=== PATIENT | female | born 1950 | race Caucasian/White ===

== ENCOUNTER 2016-04-18 18:44 | Inpatient (IN) | payer MEDICARE ==
[~2016-04-18] VITALS: Ht 165.1 cm; Wt 113.4 kg
[2016-04-18] MEDS ORDERED: ASPI-1035 PO (18:53)
[2016-04-18] MEDS ORDERED: SODIUM CHLORIDE 0.9% 1,000 ML IV ONE (19:53)
[2016-04-18] MEDS ORDERED: ONDANSETRON HCL 4MG/2ML VIAL IV ONE (20:00)
[2016-04-18] MEDS ORDERED: MECLIZINE 25MG TABLET PO ONE (20:00)
[2016-04-18 20:10] LABS: BASOPHILS % 1.1 % (0.0-2.0); DIFFERENTIAL COMMENT 0; EOSINOPHILS % 0.7 % (0.0-5.0); HEMATOCRIT. 38.4 % (36.0-48.0); HEMOGLOBIN. 12.8 g/dL (12.0-16.0); LYMPHOCYTES % 17.7 % (20.0-50.0); MEAN CORPUSCULAR HEMOGLOBIN 28.6 pg (28.0-32.0); MEAN CORPUSCULAR HGB CONC 33.4 g/dL (31.0-37.0); MEAN CORPUSCULAR VOLUME 85.6 fL (81.0-99.0); MEAN PLATELET VOLUME 9.9 fl (7.4-10.4); MONOCYTES % 6.4 % (2.0-8.0); NEUTROPHILS % 74.1 % (40.0-76.0); PLATELET 625 x1000/uL (130-400); RED BLOOD CELL COUNT 4.49 mill/uL (4.2-5.4); RED CELL DISTRIBUTION WIDTH 14.7 % (11.6-14.6); WHITE BLOOD COUNT 6.6 x1000/uL (4.5-11.0)
[2016-04-18 20:28] LABS: ALANINE AMINOTRANSFERASE 26 IU/L (13-61); ALBUMIN 3.6 g/dL (3.4-5.0); ANION GAP 14; CALCIUM 8.7 mg/dL (8.5-10.1); CARBON DIOXIDE 25 mEq/L (21-32); CHLORIDE 104 mEq/L (98-107); INDEX HEMOLYSI 1 (1-3); INDEX ICTERIC 1 (1-4); INDEX LIPEMIC 1 (1-3); TROPONIN I < 0.02 ng/mL (0.00-0.04); UREA NITROGEN BLOOD 14 mg/dL (7-21); eGFR > 60 mL/min (>60)
[2016-04-18] MEDS ORDERED: POTASSIUM CHLORIDE 20MEQ TABLET SR PO NR (20:30)
[2016-04-18] MEDS ORDERED: ZOLPIDEM TARTRATE 5MG TABLET PO PRN (21:00)
[2016-04-18] MEDS ORDERED: ASPIRIN 325MG TABLET PO ONE (22:15)
[2016-04-18] MEDS ORDERED: ONDANSETRON HCL 4MG/2ML VIAL IV PRN (23:45)
[2016-04-18] MEDS ORDERED: IPRATROPIUM/ALBUTEROL 0.5-3(2.5)MG/3ML NEB INH PRN (23:45)
[2016-04-18] MEDS ORDERED: CLONIDINE 0.1MG TABLET PO PRN (23:45)
[2016-04-19] VITALS (7 sets, daily range): BP systolic 98–108; BP diastolic 66–85
[2016-04-19] MEDS ORDERED: OMEP20TA80 PO (05:30)
[2016-04-19] MEDS ORDERED: DEXTROSE 50% WATER 50ML SYRINGE IV PRN (05:30)
[2016-04-19] MEDS ORDERED: HYDR12.54 PO (05:30)
[2016-04-19] MEDS: OMEPRAZOLE 20MG CAPSULE EXTENDED RELEASE PO SCH (06:29)
[2016-04-19] MEDS: BLOOD SUGAR DIAGNOSTIC STRIP TEST SCH ×4 (06:32→20:37)
[2016-04-19] MEDS: INSULIN LISPRO 100 UNITS/ML SUBCUT SCH ×4 (06:33→20:37)
[2016-04-19 08:39] LABS: *AMPHETAMINES SCREEN URINE NEGATIVE (NEGATIVE); *BARBITURATES SCREEN URINE NEGATIVE (NEGATIVE); *BENZODIAZEPINES SCREEN URINE NEGATIVE (NEGATIVE); *COCAINE SCREEN URINE NEGATIVE (NEGATIVE); CANNABINOID URINE SCREEN NEGATIVE (NEGATIVE); ECSTASY MDMA SCREEN URINE NEGATIVE (NEGATIVE); METHADONE URINE SCREEN NEGATIVE (NEGATIVE); OPIATES URINE SCREEN NEGATIVE (NEGATIVE); PHENCYCLIDINE URINE SCREEN NEGATIVE (NEGATIVE)
[2016-04-19] MEDS ORDERED: ENOXAPARIN 30MG/0.3ML SYR SUBCUT SCH (09:00)
[2016-04-19 09:38] LABS: BASOPHILS % 0.5 % (0.0-2.0); DIFFERENTIAL COMMENT 0; EOSINOPHILS % 1.8 % (0.0-5.0); HEMATOCRIT. 38.7 % (36.0-48.0); HEMOGLOBIN. 12.8 g/dL (12.0-16.0); LYMPHOCYTES % 29.8 % (20.0-50.0); MEAN CORPUSCULAR HEMOGLOBIN 28.5 pg (28.0-32.0); MEAN CORPUSCULAR HGB CONC 33.1 g/dL (31.0-37.0); MEAN CORPUSCULAR VOLUME 86.2 fL (81.0-99.0); MEAN PLATELET VOLUME 10.6 fl (7.4-10.4); MONOCYTES % 5.6 % (2.0-8.0); NEUTROPHILS % 62.3 % (40.0-76.0); PLATELET 601 x1000/uL (130-400); RED BLOOD CELL COUNT 4.49 mill/uL (4.2-5.4); RED CELL DISTRIBUTION WIDTH 14.7 % (11.6-14.6); WHITE BLOOD COUNT 5.6 x1000/uL (4.5-11.0)
[2016-04-19 10:21] LABS: ANION GAP 11; CALCIUM 8.4 mg/dL (8.5-10.1); CARBON DIOXIDE 27 mEq/L (21-32); CHLORIDE 109 mEq/L (98-107); HDL CHOLESTEROL 68 mg/dL (40-59); INDEX HEMOLYSI 1 (1-3); INDEX ICTERIC 1 (1-4); INDEX LIPEMIC 1 (1-3); LDL CHOLESTEROL 59 mg/dL (5-100); MAGNESIUM 2.3 mg/dL (1.8-2.4); TRIGLYCERIDE 30 mg/dL (0-150); TROPONIN I < 0.02 ng/mL (0.00-0.04); UREA NITROGEN BLOOD 11 mg/dL (7-21); eGFR > 60 mL/min (>60)
[2016-04-19] MEDS ORDERED: ENOXAPARIN 120MG/0.8ML SYR SUBCUT SCH (14:00)
[2016-04-19] MEDS: DILTIAZEM HCL 30MG TABLET PO SCH ×2 (14:00→21:12)
[2016-04-19] MEDS: ENOXAPARIN 120MG/0.8ML SYR SUBCUT SCH (20:38)
[2016-04-20] VITALS: BP 114/70
[2016-04-20 04:00] VITALS: BP_SYST 111; BP_SYST 131; BP_DIAS 71; BP_DIAS 73
[2016-04-20 05:36] LABS: BASOPHILS % 0.9 % (0.0-2.0); DIFFERENTIAL COMMENT 0; EOSINOPHILS % 2.4 % (0.0-5.0); HEMATOCRIT. 39.2 % (36.0-48.0); HEMOGLOBIN. 12.8 g/dL (12.0-16.0); LYMPHOCYTES % 40.3 % (20.0-50.0); MEAN CORPUSCULAR HEMOGLOBIN 28.2 pg (28.0-32.0); MEAN CORPUSCULAR HGB CONC 32.7 g/dL (31.0-37.0); MEAN CORPUSCULAR VOLUME 86.3 fL (81.0-99.0); MEAN PLATELET VOLUME 10.6 fl (7.4-10.4); MONOCYTES % 6.7 % (2.0-8.0); NEUTROPHILS % 49.7 % (40.0-76.0); PLATELET 571 x1000/uL (130-400); RED BLOOD CELL COUNT 4.54 mill/uL (4.2-5.4)
[2016-04-20 05:40] LABS: ANION GAP 10; CALCIUM 8.5 mg/dL (8.5-10.1); CARBON DIOXIDE 28 mEq/L (21-32); CHLORIDE 108 mEq/L (98-107); INDEX HEMOLYSI 1 (1-3); INDEX ICTERIC 1 (1-4); INDEX LIPEMIC 1 (1-3); MAGNESIUM 2.2 mg/dL (1.8-2.4); UREA NITROGEN BLOOD 16 mg/dL (7-21); eGFR > 60 mL/min (>60)
[2016-04-20] MEDS: DOCUSATE SODIUM 100MG CAPSULE PO PRN ×2 (05:56→08:52)
[2016-04-20] MEDS: DILTIAZEM HCL 30MG TABLET PO SCH ×2 (05:56→16:22)
[2016-04-20] MEDS: OMEPRAZOLE 20MG CAPSULE EXTENDED RELEASE PO SCH (05:56)
[2016-04-20 08:00] VITALS: BP 124/82
[2016-04-20] MEDS: ENOXAPARIN 120MG/0.8ML SYR SUBCUT SCH (08:56)
[2016-04-20 12:00] VITALS: BP 118/70
[2016-04-20 16:00] VITALS: BP 121/85
[2016-04-20] MEDS ORDERED: APIXABAN 5 MG TABLET PO SCH (17:00)
[2016-04-20 18:53] VITALS: BP 121/87
[2016-04-21] MEDS ORDERED: FAMOTIDINE 20MG TABLET PO SCH (09:00)
== END 2016-04-20 19:15 | disposition home or self-care (01) | DRG 309 ==
LOC: ER 19:17 → 5WST 22:47 → SUPCPDRO 23:38
PROVIDERS: ADMIT Family Medicine Adult Medicine; ATTEND Family Medicine Adult Medicine
DX: I48.91 Unspecified atrial fibrillation (principal); Z68.41 Body mass index [BMI] 40.0-44.9, adult; K52.9 Noninfective gastroenteritis and colitis, unspecified; E87.6 Hypokalemia; I10 Essential (primary) hypertension; E66.9 Obesity, unspecified; K21.9 Gastro-esophageal reflux disease without esophagitis; R73.03 Prediabetes; Z82.49 Family history of ischemic heart disease and other diseases of the circulatory system; Z90.6 Acquired absence of other parts of urinary tract; Z88.8 Allergy status to other drugs, medicaments and biological substances; Z79.82 Long term (current) use of aspirin; Z79.899 Other long term (current) drug therapy
CPT/HCPCS: 36415; 70450; 80048; 80053; 80061; 80305; 82962; 83036; 83735; 84443; 84484; 85025; 93005; 93306; 96374; 99285; G0482; J1650; J2405; J7030; J8597

== ENCOUNTER 2016-04-21 18:58 | Emergency (ER) | payer MEDICARE ==
[~2016-04-21] VITALS: Ht 165.1 cm; Wt 114.0 kg
[~2016-04-21 18:58] MED LIST: ASPI-1035 PO; HYDR12.54 PO; OMEP20TA80 PO
[2016-04-21] MEDS ORDERED: KETOROLAC 60MG/2ML VIAL IM ONE (22:45)
[2016-04-22 00:02] LABS: CLARITY URINE CLEAR (CLEAR); COLOR URINE YELLOW (YELLOW); GLUCOSE URINE NEGATIVE (NEGATIVE); KETONES URINE 1+ (NEGATIVE); LEUKOCYTE ESTERASE URINE TRACE (NEGATIVE); NITRITE URINE NEGATIVE (NEGATIVE); OCCULT BLOOD URINE NEGATIVE (NEGATIVE); PH URINE 6.5 (4.5-8.0); PROTEIN URINE NEGATIVE (NEGATIVE); SPECIFIC GRAVITY URINE 1.018 (1.005-1.030)
[2016-04-22 00:39] LABS: BACTERIA URINE TRACE; RBC URINE NONE SEEN /hpf (0-2); SQUAMOUS EPITHELIAL CELL URINE FEW /lpf (RARE/1+); WBC URINE 0-2 /hpf (0-2)
[2016-04-22 01:30] VITALS: BP 141/82
== END 2016-04-22 02:22 | disposition home or self-care (01) ==
LOC: ER 21:29
DX: M54.5 Low back pain (principal); G89.29 Other chronic pain; Z88.6 Allergy status to analgesic agent; Z79.899 Other long term (current) drug therapy; Z79.82 Long term (current) use of aspirin; I10 Essential (primary) hypertension
CPT/HCPCS: 72131; 81001; 96372; 99285; J1885; 81003

== ENCOUNTER 2016-10-22 12:53 | Emergency (ER) | payer MEDICARE ==
[~2016-10-22] VITALS: Ht 165.1 cm; Wt 106.0 kg
[~2016-10-22 12:53] MED LIST changes: -ASPI-1035 PO; +ASPI-1159 PO; +OMEP20TA2 PO; -OMEP20TA80 PO
[2016-10-22 15:22] VITALS: BP 119/76
[2016-10-22] MEDS ORDERED: IBUPROFEN 800MG TABLET PO ONE (16:15)
== END 2016-10-22 16:58 | disposition home or self-care (01) ==
LOC: ER 13:52
DX: S93.402A Sprain of unspecified ligament of left ankle, initial encounter (principal); S93.602A Unspecified sprain of left foot, initial encounter; X58.XXXA Exposure to other specified factors, initial encounter; Y93.89 Activity, other specified; Y92.89 Other specified places as the place of occurrence of the external cause; I10 Essential (primary) hypertension; Z79.82 Long term (current) use of aspirin; Z88.5 Allergy status to narcotic agent
CPT/HCPCS: 73610; 73630; 99284

== ENCOUNTER → 2017-04-30 | Outpatient (CLI) | payer MEDICARE ==
[~2017-04-30] MED LIST changes: +APIX5TAB PO; +DILT300C52 PO
== END | disposition home or self-care (01) ==
LOC: RAD 10:11
PROVIDERS: ATTEND Specialist
DX: M25.551 Pain in right hip (principal); M25.552 Pain in left hip
CPT/HCPCS: 73521

== ENCOUNTER → 2018-03-14 | Outpatient (CLI) | payer MEDICARE | END | disposition home or self-care (01) | LOC: US 09:46 | PROVIDERS: ATTEND Specialist | DX: N28.9 Disorder of kidney and ureter, unspecified (principal) | CPT/HCPCS: 76770 ==